=== PATIENT | male | born 1965 | race Caucasian/White ===

== ENCOUNTER 2021-10-19 12:27 | Emergency (ER) | payer OTHER ==
[~2021-10-19] VITALS: Ht 175.3 cm; Wt 75.7 kg
[~2021-10-19 12:27] MED LIST: ATORVASTATIN CA10 MG
[2021-10-19] MEDS ORDERED: CARAFATE1 GM (12:57)
[2021-10-19] MEDS ORDERED: AMOX-CLAV 875-1 EACH PO (14:04)
== END 2021-10-19 14:28 | disposition home or self-care (01) ==
LOC: ER 12:27
DX: S61.411A Laceration without foreign body of right hand, initial encounter (principal); W26.8XXA Contact with other sharp object(s), not elsewhere classified, initial encounter; Y92.010 Kitchen of single-family (private) house as the place of occurrence of the external cause